=== PATIENT | male | born 2000 | race Caucasian/White ===

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

== ENCOUNTER 2020-06-30 19:13 | Emergency (ER) | payer OTHER ==
[2020-06-30 20:18] VITALS: BP 140/74
[2020-06-30] MEDS ORDERED: DIPHtheria,PERTUSSIS(ACELL),TETANUS VACCINE/PF 0.5 ML VIAL IM ONE (20:31)
--- NOTE | 2020-06-30 20:31 | Event Note ---
ED Screening Note ED Screening Note: left index finger laceration states he was using a saw and it cut his finger is able to move the finger no numbness or weakness unsure of last tetanus pmhx none no allergies to meds This initial assessment/diagnostic orders/clinical plan/treatment(s) is/are subject to change based on patients health status, clinical progression and re- assessment by fellow clinical providers in the ED. Further treatment and workup at subsequent clinical providers discretion. Patient/guardian urged not to elope from the ED as their condition may be serious if not clinically assessed and managed. Initial orders include: XR hand, tdap ACC eval
--- NOTE | 2020-06-30 21:10 | XRay Report ---
LEFT HAND 3 VIEW(S) INDICATION / CLINICAL INFORMATION: left index finger laceration by saw COMPARISON: None available. FINDINGS: BONES / JOINT(S): No acute fracture or subluxation. No evidence of traumatic osseous injury. No signi ficant arthritis. SOFT TISSUES: Mild index finger edema. No radiopaque foreign object. ADDITIONAL FINDINGS: None. Signer Name: Quique Santiago MD Signed: 06/30/2020 9:05 PM Workstation Name: [id number]
--- NOTE | 2020-06-30 23:18 | Emergency Department Report ---
ED General Adult HPI - General Chief complaint: Wound/Laceration Stated complaint: FINGER LACERATION Time Seen by Provider: 06/30/20 20:29 Source: patient Mode of arrival: Ambulatory Limitations: No Limitations - History of Present Illness Initial comments: 19-year-old male patient presents with complaints of laceration to the left index finger x today. Patient states he was cut with a sharp blade of a machine at work. He states he went to an urgent care initially, however he was referred to the ED for possible ligament laceration of the finger. He denies any numbness and is unsure of his last tetanus vaccination. Patient rates his current pain as a 4/10 in severity. - Related Data Previous Rx's Medication Instructions Recorded Last Taken Type Ibuprofen [Motrin 800 MG tab] 800 mg PO Q8HR PRN #20 tablet 07/01/20 Unknown Rx cephALEXin [Keflex] 500 mg PO Q8HR 7 Days #21 cap 07/01/20 Unknown Rx Allergies Allergy/AdvReac Type Severity Reaction Status Date / Time No Known Allergies Allergy Unverified 11/02/16 23:19 ED Review of Systems ROS: Stated complaint: FINGER LACERATION Other details as noted in HPI Constitutional: denies: fever, malaise Musculoskeletal: arthralgia Skin: denies: change in color Neurological: denies: numbness, paresthesias Hematological/Lymphatic: denies: easy bleeding ED Past Medical Hx - Past Medical History Previous Medical History?: No - Surgical History Past Surgical History?: No - Social History Smoking Status: Current Every Day Smoker Substance Use Type: Alcohol - Medications Home Medications: Home Medications Medication Instructions Recorded Confirmed Last Taken Type Ibuprofen [Motrin 800 MG tab] 800 mg PO Q8HR PRN #20 tablet 07/01/20 Unknown Rx cephALEXin [Keflex] 500 mg PO Q8HR 7 Days #21 cap 07/01/20 Unknown Rx ED Physical Exam - General Limitations: No Limitations General appearance: alert, in no apparent distress - Head Head exam: Present: atraumatic, normocephalic - Eye Eye exam: Present: normal appearance - Neck Neck exam: Present: normal inspection - Respiratory Respiratory exam: Absent: respiratory distress - Cardiovascular Cardiovascular Exam: Present: regular rate - Extremities Exam Extremities exam: Present: other (Approximately 4 cm laceration noted to dorsal aspect of left index finger with mild active bleeding; patient has full range of motion of the finger and normal sensation;) - Neurological Exam Neurological exam: Present: alert, oriented X3 - Psychiatric Psychiatric exam: Present: normal affect, normal mood - Skin Skin exam: Present: warm, dry, normal color. Absent: rash ED Course Vital Signs 06/30/20 20:15 Temperature 98.5 F Pulse Rate 66 Respiratory 14 Rate Blood Pressure 140/74 O2 Sat by Pulse 98 Oximetry - Laceration /Wound Repair Left Finger Wound Length (cm): 4 Wound's Depth, Shape: linear Irrigated w/ Saline (ccs): 60 Anesthesia: 1% Lidocaine Volume Anesthetic (ccs): 7 (Digital block) Suture Size/Type: 4:0, proline Number of Sutures: 7 (Interrupted) Sterile Dressing Applied?: Yes Progress: Minimal bleeding occurred. Patient tolerated procedure well without any immediate complications ED Medical Decision Making - Radiology Data Radiology results: report reviewed LEFT HAND 3 VIEW(S) INDICATION / CLINICAL INFORMATION: left index finger laceration by saw COMPARISON: None available. FINDINGS: BONES / JOINT(S): No acute fracture or subluxation. No evidence of traumatic osseous injury. No significant arthritis. SOFT TISSUES: Mild index finger edema. No radiopaque foreign object. - Medical Decision Making 19-year-old male patient presents with complaints of laceration to the left index finger x today. Patient states he was cut with a sharp blade of a machine at work. He states he went to an urgent care initially, however he was referred to the ED for possible ligament laceration of the finger. He denies any numbness and is unsure of his last tetanus vaccination. Patient rates his current pain as a 4/10 in severity. On exam, patient has normal sensation and full range of motion of the left index finger. Laceration repaired without any immediate complications. Patient tolerated procedure well. His vitals are normal, he is well-appearing, he is stable for discharge home. Keflex given for prophylaxis for infection. Discussed wound care and signs and symptoms that should prompt immediate return to the emergency department in detail with patient who verbalizes understanding. Patient to return to the ED in 10 days for suture removal. Critical care attestation.: If time is entered above; I have spent that time in minutes in the direct care of this critically ill patient, excluding procedure time. ED Disposition Clinical Impression: Laceration of finger of left hand Qualifiers: Encounter type: initial encounter Finger: index finger Damage to nail status: without damage Foreign body presence: without foreign body Qualified Code(s): S61.211A - Laceration without foreign body of left index finger without damage to nail, initial encounter Disposition: DC-01 TO HOME OR SELFCARE Is pt being admited?: No Condition: Stable Instructions: Sutured Wound Care Additional Instructions: Return to the emergency department in 10 days (07/10/2020) for suture removal Prescriptions: cephALEXin [Keflex] 500 mg PO Q8HR 7 Days #21 cap Ibuprofen [Motrin 800 MG tab] 800 mg PO Q8HR PRN #20 tablet PRN Reason: pain Forms: Work/School Release Form(ED)
[2020-07-01] MEDS ORDERED: DIPHtheria,PERTUSSIS(ACELL),TETANUS VACCINE/PF 0.5 ML VIAL IM ONE (00:37)
== END 2020-07-01 00:50 | disposition home or self-care (01) ==
LOC: ED 19:13
DX: S61.211A Laceration without foreign body of left index finger without damage to nail, initial encounter (principal); F17.200 Nicotine dependence, unspecified, uncomplicated; Z79.1 Long term (current) use of non-steroidal anti-inflammatories (NSAID); Z79.899 Other long term (current) drug therapy; W31.89XA Contact with other specified machinery, initial encounter; Y93.89 Activity, other specified; Y92.89 Other specified places as the place of occurrence of the external cause; Y99.8 Other external cause status
CPT/HCPCS: 90471; 90715; 99283